=== PATIENT | female | born 1985 ===

== ENCOUNTER 2016-06-28 13:17 | Emergency (ER) | payer OTHER ==
[2016-06-28 13:26] VITALS: BP 127/76; PULSE 68; RESP 16; TEMP 98.8; O2SAT 99
--- NOTE | 2016-06-28 13:39 | ED PDOC ---
HPI: Abdomen Time Seen by Provider: 06/28/16 13:36 Chief Complaint (Nursing): Groin Pain Chief Complaint (Provider): abdominal pain/swelling History Per: Patient (30 y/o female here with complaint of lower abdominal swelling x 1 year worsening with heavy lifting. Denies any v/d/f and increased pain. Denies any abdominal surgeries.) Past Medical History Reviewed: Historical Data, Nursing Documentation, Vital Signs Vital Signs: Last Vital Signs Temp 98.8 F 06/28/16 13:23 Pulse 68 06/28/16 13:23 Resp 16 06/28/16 13:23 BP 127/76 06/28/16 13:23 Pulse Ox 99 06/28/16 13:23 - Surgical History Surgical History: No Surg Hx - Family History Family History: States: No Known Family Hx - Home Medications Home Medications: Ambulatory Orders Medication Instructions Recorded Ibuprofen [Motrin] 600 mg PO Q8 PRN #21 tab 06/28/16 - Allergies Allergies/Adverse Reactions: Allergies Allergy/AdvReac Type Severity Reaction Status Date / Time No Known Allergies Allergy Verified 06/28/16 13:23 Review of Systems ROS Statement: Except As Marked, All Systems Reviewed And Found Negative Physical Exam - Reviewed Nursing Documentation Reviewed: Yes Vital Signs Reviewed: Yes - Physical Exam Appears: Positive for: Well, Non-toxic, No Acute Distress Head Exam: Positive for: ATRAUMATIC, NORMAL INSPECTION, NORMOCEPHALIC Skin: Positive for: Normal Color, Warm, DRY Eye Exam: Positive for: EOMI, Normal appearance, PERRL ENT: Positive for: Normal ENT Inspection Neck: Positive for: Normal, Painless ROM Cardiovascular/Chest: Positive for: Regular Rate, Rhythm Respiratory: Positive for: CNT, Normal Breath Sounds Gastrointestinal/Abdominal: Positive for: Normal Exam, Bowel Sounds, Soft, Other (swelling noted right pubic region/ nontender/ reducible) Back: Positive for: Normal Inspection Extremity: Positive for: Normal ROM Neurologic/Psych: Positive for: Alert, Oriented - ECG O2 Sat by Pulse Oximetry: 99 - Progress ED Course And Treament: Patient demonstrates no signs of sbo/incarcerated hernia. d/w her need for f/u with surgery. Disposition - Clinical Impression Clinical Impression: Hernia - Disposition Referrals: [facility] [Outside] Jaylan Sheth MD [Staff Provider] - Disposition: Routine/Home Disposition Time: 13:39 Condition: FAIR Prescriptions: Ibuprofen [Motrin] 600 mg PO Q8 PRN #21 tab PRN Reason: Pain, Severe (8-10) Instructions: Ventral Hernia (ED) Print Language: TURKISH
== END 2016-06-28 14:17 | disposition home or self-care (01) ==
LOC: H.ER 13:17
DX: K64.9 Unspecified hemorrhoids (principal)

== ENCOUNTER 2016-09-28 10:57 | Day surgery (SDC) | payer SELFPAY ==
[2016-09-26 08:16] VITALS: BMI 26.1
[2016-09-28] MEDS ORDERED: Lactated Ringer's 1,000 ML IV ONE ×2 (11:30→14:20)
--- NOTE | 2016-09-28 11:52 | CP.SDSHP ---
Same Day Surgery H & P - History Proposed Procedure: Right inguinal hernia repair Pre-Op Diagnosis: Right inguinal hernia - Previous Medical/Surgical History Pain: 2.Mild Pain Previous Surgical History: None - Allergies Allergies: Allergies No Known Allergies Allergy (Verified 06/28/16 13:23) - Physical Exam General Appearance: NAD Mental Status: Alert & Oriented x3 Neuro: WNL Heart: WNL Lungs: WNL GI: WNL - {Optional Preform as Required} Breast: WNL Abdomen: Other (R low abd lateral to suprapubic area 3cm lump. TTP) Integument: WNL CYBER ANALYST: WNL Ortho: WNL ENT: WNL - Impression Impression: Right inguinal hernia Pt. Evaluated Today:Candidate for Anesthesia & Procedure: Yes - Date & Time Date: 09/28/16 Time: 11:58 Short Stay Discharge - Short Stay Discharge Admitting Diagnosis/Reason for Visit: K40.9 Disposition: HOME/ ROUTINE Referrals: Trina Bee MD [Primary Care Provider] - Jaylan Sheth MD [Staff Provider] - Follow-up: follow up with Dr. Sheth in 1-2 week Take pain med as needed No heavy lifting for 1 month Ok to take shower tomorrow. Keep steristrips on No bathing for 2 weeks Ok to return to work next week Instructions: Open Herniorrhaphy (DC)
[2016-09-28 11:58] VITALS: RESP 18
[2016-09-28] MEDS ORDERED: Propofol 10 mg/ml Inj (20 ML) ONE (12:44)
[2016-09-28] MEDS ORDERED: Succinylcholine 200 mg/10 ml Inj IV ONE (12:44)
[2016-09-28] MEDS ORDERED: ePHEDrine 50 mg/ml Inj ONE (12:44)
[2016-09-28] MEDS ORDERED: Midazolam 2 MG/2 ML VIAL ONE (12:44)
[2016-09-28] MEDS ORDERED: Lidocaine 4% (Laryng-O-Jet) Kit MM ONE (12:45)
[2016-09-28] MEDS ORDERED: Dexamethasone 4 mg/1 ml ONE (14:30)
[2016-09-28] MEDS ORDERED: Oxycodone/Acetaminophen 5/325 mg Tab PO PRN (14:52)
--- NOTE | 2016-09-28 14:54 | PCM.SURG1 ---
Surgeon's Initial Post Op Note - Surgeon's Notes Surgeon: Dr. Sheth Stores Despatch Hand: Sofía Brady PGY2, Praneeth PGY3 Type of Anesthesia: General Endo Pre-Operative Diagnosis: R inguinal hernia Operative Findings: Same Post-Operative Diagnosis: Same Operation Performed: Open right inguinal hernia repair with mesh Specimen/Specimens Removed: None Estimated Blood Loss: EBL {In ML}: 5 Blood Products Given: N/A Drains Used: No Drains Post-Op Condition: Good Date of Surgery/Procedure: 09/28/16 Time of Surgery/Procedure: 14:54
[2016-09-28] MEDS: HYDROmorphone 0.5 mg/0.5 ml ISec IVP PRN ×2 (15:20→15:40)
[2016-09-28 17:40] VITALS: O2SAT 99
[2016-09-28] MEDS ORDERED: Oxycodone/Acetaminophen 5/325 mg Tab PO ONE (17:42)
[2016-09-28 18:38] VITALS: BP 109/78; PULSE 68; TEMP 98.9
--- NOTE | 2016-09-29 03:43 | OP ---
PROCEDURE DATE: 09/28/2016 SURGEON: Dr. Sheth. STRAPPING MACHINE OPERATOR: Dr. Brady and Dr. Dacosta. ANESTHESIA: General. ANESTHESIOLOGIST: Dr. Higginbotham PREOPERATIVE DIAGNOSIS: Right inguinal hernia. POSTOPERATIVE DIAGNOSIS: Right inguinal hernia. PROCEDURE: Right inguinal hernia repair with mesh. DESCRIPTION OF OPERATION: With the patient in the supine position under adequate general anesthesia, the right groin was prepped and draped in the usual sterile manner. A transverse incision was made in the right upper groin crease taken down through the subcutaneous tissue. The external oblique layer was identified and a small amount of fatty bulge was noted at the external inguinal ring. The external oblique was incised and opened from the external inguinal ring to the internal inguinal ring. The round ligament was identified and dissected at the level of the pubic tubercle, and as it was elevated, it was noted that it was continuous with a fairly large hernia sac. The round ligament was clamped and divided close to the pubic tubercle and each side was suture ligated with a 2-0 Vicryl suture. The inguinal floor was examined and the sac was noted to represent an eventrating direct hernia presenting medial to the internal inguinal ring via a slightly larger than 1 cm round defect in the inguinal floor. As the sac and proximal portion of the round ligament had already been suture ligated, the sac was inverted back above the transversalis fascial layer and again the defect in the floor was palpated and a size small ProLoop plug was placed into the defect to maintain the reduction of the hernia and positioned well up beneath the transversalis fascia, where it was sutured with 2-0 Prolene sutures. The flat portion of the mesh was then positioned over the inguinal floor and beneath the external oblique layer and sutured to the transversalis fascia superiorly and the shelving edge of the inguinal ligament inferiorly to maintain the reduction. The transversalis layer was also imbricated with 3-0 Vicryl suture to completely cover the plug prior to placement of the flat mesh. The flat portion of the mesh was fixed medially at the pubic tubercle and then using interrupted sutures, fix the laterally beyond the area of the internal inguinal ring. When this had been completed, the external oblique was reapproximated over the mesh with running suture of 2-0 Vicryl and subcutaneous tissues were closed with 3-0 Vicryl interrupted sutures and skin was closed with running subcuticular suture of 4-0 Monocryl and Steri-Strips. Dry sterile dressing was applied. The patient tolerated the procedure well and transferred to recovery room in stable condition. Estimated blood loss for the procedure was 5 mL. Jaylan Sheth MD MTDD
== END 2016-09-28 19:29 | disposition home or self-care (01) ==
LOC: H.OPSURG 10:57
PROVIDERS: ATTEND Specialist
DX: K40.90 Unilateral inguinal hernia, without obstruction or gangrene, not specified as recurrent (principal)